=== PATIENT | male | born 1945 | race Caucasian/White ===

== ENCOUNTER 2017-07-09 16:57 | Inpatient (IN) | payer MEDICARE, OTHER ==
[2017-07-09 18:07] LABS: ADD MAN DIFF? NO
[2017-07-09 18:09] LABS: BASO # 0.1 x10^3/uL (0.0-0.2); BASO % 1 % (0-3); EOS # 0.2 x10^3/uL (0.0-0.7); EOS % 2 % (0-3); HEMATOCRIT 42.2 % (39.0-53.0); HEMOGLOBIN 14.7 g/dL (13.0-17.5); LYMPH # 2.6 x10^3/uL (1.0-4.8); LYMPH % 26 % (24-48); MEAN CORPUSCULAR HEMOGLOBIN 32 pg (25-35); MEAN CORPUSCULAR HGB CONC 35 g/dL (31-37); MEAN CORPUSCULAR VOLUME 91 fL (79-100); MONO # 1.3 x10^3/uL (0.0-1.1); MONO % 13 % (0-9); NEUT # 5.8 x10^3uL (1.8-7.7); NEUT % 59 % (31-73); PLATELET COUNT 253 x10^3/uL (140-400); RED BLOOD COUNT 4.64 x10^6/uL (4.30-5.70); RED CELL DISTRIBUTION WIDTH 13.1 % (11.5-14.5); WHITE BLOOD COUNT 9.9 x10^3/uL (4.0-11.0)
[2017-07-09 18:22] LABS: ANION GAP 7 (6-14); BLOOD UREA NITROGEN 25 mg/dL (8-26); BUN/CREATININE RATIO 23 (6-20); CALCIUM 8.4 mg/dL (8.5-10.1); CARBON DIOXIDE 27 mmol/L (21-32); CHLORIDE 103 mmol/L (98-107); CREATININE 1.1 mg/dL (0.7-1.3); GFR 66.4; GLUCOSE 113 mg/dL (70-99); POTASSIUM 4.3 mmol/L (3.5-5.1); SODIUM 137 mmol/L (136-145)
[2017-07-09 18:37] LABS: ALBUMIN 3.6 g/dL (3.4-5.0); ALK PHOS 82 U/L (46-116); ALT (SGPT) 45 U/L (16-63); AST (SGOT) 145 U/L (15-37); TOTAL BILIRUBIN 0.5 mg/dL (0.2-1.0); TOTAL PROTEIN 7.3 g/dL (6.4-8.2)
[2017-07-09 18:39] LABS: TROPONINI 17.775 ng/mL (0.000-0.055)
[2017-07-09] MEDS: ASPIRIN CHEWABLE 81 MG TABLET. PO (18:49)
[2017-07-09] MEDS ORDERED: ONDANSETRON PF 4 MG/2 ML VIAL. IV (19:30)
[2017-07-09] MEDS ORDERED: MORPHINE SULFATE 2 MG/ML DISP.SYRIN. IV (19:30)
[2017-07-09 19:37] LABS: INR 1.1 (0.8-1.1); PARTIAL THROMBOPLASTIN TIME 28 SEC (24-38); PROTHROMBIN TIME PATIENT 13.7 SEC (11.7-14.0)
[2017-07-09] MEDS: CLOPIDOGREL BISULFATE 75 MG TABLET PO (19:55)
[2017-07-09] MEDS: HEPARIN for IV BOLUS 10,000 UNIT/10 ML VIAL. IV (19:58)
[2017-07-09] MEDS: HEPARIN 25,000UTS/500ML PREMIX 500 ML IV (19:59)
[2017-07-10 02:06] LABS: HEMATOCRIT 42.1 % (39.0-53.0); HEMOGLOBIN 14.6 g/dL (13.0-17.5); MEAN CORPUSCULAR HEMOGLOBIN 32 pg (25-35); MEAN CORPUSCULAR HGB CONC 35 g/dL (31-37); MEAN CORPUSCULAR VOLUME 92 fL (79-100); PLATELET COUNT 241 x10^3/uL (140-400); RED BLOOD COUNT 4.59 x10^6/uL (4.30-5.70); RED CELL DISTRIBUTION WIDTH 13.1 % (11.5-14.5); WHITE BLOOD COUNT 8.8 x10^3/uL (4.0-11.0)
[2017-07-10 02:27] LABS: TROPONINI 15.354 ng/mL (0.000-0.055)
[2017-07-10] MEDS ORDERED: IOHEXOL 300 MG/ML 100ML VIAL. ×2 (07:35→09:08)
[2017-07-10] MEDS ORDERED: LIDOCAINE 2% 20 ML VIAL. ×2 (07:35→07:36)
[2017-07-10] MEDS: ANTI-COAG MONITOR BY PHARMACY. MC (07:41)
[2017-07-10 08:14] LABS: UNFRACTIONATED HEPARIN TESTING 0.23 IU/mL (0.30-0.70)
[2017-07-10] MEDS ORDERED: fentaNYL PF VIAL 100 MCG/2 ML VIAL (08:24)
[2017-07-10] MEDS ORDERED: MIDAZOLAM HCL/PF 2 MG/2 ML VIAL. (08:24)
[2017-07-10 08:31] LABS: TROPONINI 13.632 ng/mL (0.000-0.055)
[2017-07-10] MEDS: IOHEXOL 300 MG/ML 100ML VIAL. IART (08:45)
[2017-07-10] MEDS: MIDAZOLAM HCL/PF 2 MG/2 ML VIAL. IV (08:45)
[2017-07-10] MEDS: fentaNYL PF VIAL 100 MCG/2 ML VIAL IV (08:45)
[2017-07-10] MEDS: LIDOCAINE 2% 20 ML VIAL. IJ (08:45)
[2017-07-10] MEDS ORDERED: HEPARIN for IV BOLUS 10,000 UNIT/10 ML VIAL. (08:54)
[2017-07-10 10:49] LABS: ISTAT ACT 164 sec (92-181)
[2017-07-10 10:49] LABS: ISTAT ACT 107 sec (92-181)
[2017-07-10 10:49] LABS: ISTAT ACT 140 sec (92-181)
[2017-07-10] MEDS: CYANOCOBALAMIN (VITAMIN B-12) 1,000 MCG TABLET. PO (13:51)
[2017-07-10] MEDS: MULTIVITAMIN with MINERAL TABLET. PO (13:52)
[2017-07-10] MEDS: ASPIRIN ENTERIC COATED 81 MG TABLET.DR. PO (13:52)
[2017-07-10] MEDS: OMEGA-3 FATTY ACIDS/FISH OIL 1,000 MG CAPSULE. PO (13:52)
[2017-07-10] MEDS: LISINOPRIL 10 MG TABLET PO ×2 (13:52)
[2017-07-10] MEDS: TAMSULOSIN 0.4 MG CAP.ER.24H. PO (17:48)
[2017-07-10] MEDS: CARVEDILOL 12.5 MG TABLET. PO (17:48)
[2017-07-10 18:12] LABS: UNFRACTIONATED HEPARIN TESTING 0.16 IU/mL (0.30-0.70)
[2017-07-10] MEDS: HEPARIN for IV BOLUS 10,000 UNIT/10 ML VIAL. IV (19:24)
[2017-07-10] MEDS: ATORVASTATIN CALCIUM 40 MG TABLET. PO (20:12)
[2017-07-10] MEDS: HEPARIN 25,000UTS/500ML PREMIX 500 ML IV (23:37)
[2017-07-11 01:41] LABS: UNFRACTIONATED HEPARIN TESTING 0.59 IU/mL (0.30-0.70)
[2017-07-11 08:30] LABS: UNFRACTIONATED HEPARIN TESTING 0.43 IU/mL (0.30-0.70)
[2017-07-11] MEDS: CLOPIDOGREL BISULFATE 75 MG TABLET PO ×2 (08:40)
[2017-07-11] MEDS: TAMSULOSIN 0.4 MG CAP.ER.24H. PO (08:40)
[2017-07-11] MEDS: ASPIRIN ENTERIC COATED 81 MG TABLET.DR. PO (08:40)
[2017-07-11] MEDS: OMEGA-3 FATTY ACIDS/FISH OIL 1,000 MG CAPSULE. PO (08:40)
[2017-07-11] MEDS: CYANOCOBALAMIN (VITAMIN B-12) 1,000 MCG TABLET. PO (08:41)
[2017-07-11] MEDS: CARVEDILOL 12.5 MG TABLET. PO (08:41)
[2017-07-11] MEDS: MULTIVITAMIN with MINERAL TABLET. PO (08:41)
== END 2017-07-11 14:30 | disposition home or self-care (01) | DRG 281 ==
LOC: ER 16:57 → 2 NORTH 19:26
PROC: 4A023N7 Measurement of Cardiac Sampling and Pressure, Left Heart, Percutaneous Approach (ICD-10-PCS; principal; 2017-07-10)
PROC: B2151ZZ Fluoroscopy of Left Heart using Low Osmolar Contrast (ICD-10-PCS; 2017-07-10)
PROC: B2111ZZ Fluoroscopy of Multiple Coronary Arteries using Low Osmolar Contrast (ICD-10-PCS; 2017-07-10)
PROC: B3101ZZ Fluoroscopy of Thoracic Aorta using Low Osmolar Contrast (ICD-10-PCS; 2017-07-10)
DX: I21.4 Non-ST elevation (NSTEMI) myocardial infarction (principal); I50.22 Chronic systolic (congestive) heart failure; I11.0 Hypertensive heart disease with heart failure; Z95.1 Presence of aortocoronary bypass graft; E78.5 Hyperlipidemia, unspecified; I10 Essential (primary) hypertension; I25.119 Atherosclerotic heart disease of native coronary artery with unspecified angina pectoris; Z82.49 Family history of ischemic heart disease and other diseases of the circulatory system
CPT/HCPCS: 36415; 71045; 80053; 84484; 85025; 85027; 85347; 85520; 85610; 85730; 93005; 93459; 96374; 96375; 99152; 99153; 99285-25; C1769; C1771; C1892; G0269; J1644; J2250; J3010; Q9967

== ENCOUNTER → 2017-12-03 | Outpatient (CLI) | payer MEDICARE | END | disposition home or self-care (01) | LOC: ECHO 08:35 | DX: I25.5 Ischemic cardiomyopathy (principal); I11.0 Hypertensive heart disease with heart failure; I50.22 Chronic systolic (congestive) heart failure | CPT/HCPCS: 93306 ==

== ENCOUNTER → 2019-08-27 | Outpatient (CLI) | payer MEDICARE, OTHER ==
[2017-07-11 11:09] VITALS: BP 117/68
[~2019-08-27] MED LIST: ASPI81TA50 PO; ATOR40TA59 PO; CARV25TA2 PO; CLOP75TA PO; CYAN-25 PO; LISI10TA2 PO; MULT1TAB52 PO; OMEG1CAP6 PO; TAMS0.4C2 PO
--- NOTE | 2019-08-27 10:08 | CARD ---
MR#: [id number] Date of Study: 08/27/2019 Ordering Physician: HÉCTOR JAVED, Referring Physician: HÉCTOR JAVED, Tech: Peggy Pérez APPROVED REPORT EXAM: Two-dimensional and M-mode echocardiogram with Doppler and color Doppler. Other Information Quality : GoodHR: 64bpm Rhythm : NSR INDICATION CAD Surgery/Intervention CABG: RISK FACTORS Hypertension Hyperlipidemia 2D DIMENSIONS Left Atrium(2D)4.7 (1.6-4.0cm)IVSd1.2 (0.7-1.1cm) Aortic Root(2D)2.7 (2.0-3.7cm)LVDd4.8 (3.9-5.9cm) LVOT Diameter2.0 (1.8-2.4cm)PWd1.1 (0.7-1.1cm) LVDs3.8 (2.5-4.0cm)FS (%) 21.1 % SV45.9 mlLVEF(%)42.8 (>50%) Mitral Valve MV E Zjxuotrj43.9cm/sMV DECEL [id number] MV A Wwmjioou66.8cm/sE/A Ratio0.6 MV A Etnsnmnp27dj Pulmonary Vein S1 Zcyxvahb96.4cm/sD2 Ooqalylm32.8cm/s PVa [id number] LEFT VENTRICLE The left ventricle is normal size. There is borderline to mild left ventricular hypertrophy. Left sharan tricle systolic function is mildly decreased. EF 40-45% Mild global hypokinesis with wall motion sugg estive of conduction defect. Transmitral Doppler flow pattern is Grade I-abnormal relaxation pattern. RIGHT VENTRICLE The right ventricle is normal size. There is normal right ventricular wall thickness. The right ventr icular systolic function is normal. ATRIA The left atrium size is normal. The right atrium size is normal. The interatrial septum is intact wit h no evidence for an atrial septal defect or patent foramen ovale as noted on 2-D or Doppler imaging. AORTIC VALVE The aortic valve is mildly calcified. Doppler and Color Flow revealed no significant aortic regurgita tion. There is no evidence of aortic valve stenosis. MITRAL VALVE The mitral valve is normal in structure and function. There is no mitral valve stenosis. Doppler and Color Flow revealed trace mitral regurgitation. TRICUSPID VALVE The tricuspid valve is normal in structure and function. Doppler and Color Flow revealed no tricuspid valve regurgitation noted. There is no tricuspid valve prolapse or vegetation. PULMONIC VALVE Doppler and Color Flow revealed no pulmonic valvular regurgitation. There is no pulmonic valvular gabi nosis. GREAT VESSELS The aortic root is normal in size. The ascending aorta is normal in size. The IVC is normal in size a nd collapses >50% with inspiration. PERICARDIAL EFFUSION There is no evidence of significant pericardial effusion. Critical Notification Critical Value: No <Conclusion> Left ventricle systolic function is mildly decreased. EF 40-45% Mild global hypokinesis with wall motion suggestive of conduction defect. Signed by : Héctor Javed, Electronically Approved : 08/27/2019 10:08:42
== END | disposition home or self-care (01) ==
LOC: ECHO 08:54
PROVIDERS: ATTEND Internal Medicine Cardiovascular Disease
DX: I35.8 Other nonrheumatic aortic valve disorders (principal)
CPT/HCPCS: 93306

== ENCOUNTER → 2021-01-18 | Outpatient (CLI) | payer MEDICARE, OTHER ==
[2017-07-11 11:09] VITALS: BP 117/68
[~2021-01-18] MED LIST changes: +LISI10TA16 PO; -LISI10TA2 PO; +MULT-445 PO; -MULT1TAB52 PO
--- NOTE | 2021-01-18 10:08 | RAD ---
EXAM: Abdomen aortic sonogram. HISTORY: Tobacco use. Aortic aneurysm screening. TECHNIQUE: Sonographic imaging of the abdominal aorta was performed. COMPARISON: None. FINDINGS: There is calcified atherosclerotic plaque involving the aorta and iliac bifurcation. The pr oximal abdominal aorta measures 2.8 cm in caliber. The mid abdominal aorta measures 2.1 cm in caliber and the distal abdominal aorta measures 1.9 cm in caliber. The common iliac arteries are partially o bscured due to bowel gas. These are normal in caliber on limited images. IMPRESSION: 1. Aortobiiliac atherosclerosis. 2. No evidence of abdominal aortic aneurysm. Electronically signed by: Felicitas Renteria MD (01/18/2021 10:05 AM) [id number]
--- NOTE | 2021-01-18 18:51 | CARD ---
MR#: [id number] Date of Study: 01/18/2021 Ordering Physician: HÉCTOR JAVED, Referring Physician: HÉCTOR JAVED, Tech: Sidra Ilda, [facility] APPROVED REPORT EXAM: Two-dimensional and M-mode echocardiogram with Doppler and color Doppler. Other Information HR: 50bpm INDICATION Cardiac Disease: CAD Surgery/Intervention CABG: Date: 2000 Site: [facility] 2D DIMENSIONS RVDd3.9 (2.9-3.5cm)Left Atrium(2D)3.8 (1.6-4.0cm) IVSd1.1 (0.7-1.1cm)Aortic Root(2D)3.2 (2.0-3.7cm) LVDd5.0 (3.9-5.9cm)LVOT Diameter2.1 (1.8-2.4cm) PWd0.9 (0.7-1.1cm)LVDs3.2 (2.5-4.0cm) FS (%) 35.0 %SV75.3 ml Aortic Valve AoV Peak Jozef.139.3cm/sAoV VTI31.3cm AO Peak GR.7.8mmHgLVOT Peak Jozef.77.5cm/s LVOT VTI 20.02cmAO Mean GR.4mmHg DEEPA (VMAX)1.99ng0MCZ (VTI)2.18cm2 Mitral Valve MV E Nderwtis99.3cm/sMV DECEL [id number] MV A Wioivwhd16.4cm/sMV E Mean Gr.1mmHg MV THP318gsU/A Ratio0.7 MVA (PHT)1.83cm2 TDI E/Lateral E'5.5E/Medial E'6.2 Pulmonary Valve PV Peak Qiqzdirq94.0cm/sPV Peak Grad.4mmHg Tricuspid Valve TR P. Aopreayl092bm/sRAP VTNOXQCW7zzCa TR Peak Gr.26rpWfQAZJ11urFz Pulmonary Vein S1 Nkarpztx65.1cm/sD2 Cxmteoxg47.8cm/s PVa mxybmdog503mtyg LEFT VENTRICLE The left ventricle is normal size. There is normal left ventricular wall thickness. The left ventricu lar systolic function is normal and the ejection fraction is at the lower level of normal. The Ejecti on Fraction is estimated at 50%. Wall motion consistent with conduction abnormality. Transmitral Dopp ler flow pattern is Grade I-abnormal relaxation pattern. RIGHT VENTRICLE The right ventricle is borderline dilated. There is normal right ventricular wall thickness. The righ t ventricular systolic function is normal. ATRIA The left atrium size is normal. The right atrium is borderline dilated. The interatrial septum is int act with no evidence for an atrial septal defect or patent foramen ovale as noted on 2-D or Doppler i maging. AORTIC VALVE The aortic valve is thickened but opens well. Doppler and Color Flow revealed trace aortic regurgitat ion. There is no significant aortic valvular stenosis. Calculated aortic valve area is 1.79 cm2 with maximum pressure gradient of 11 mmHg and mean pressure gradient of 5 mmHg. MITRAL VALVE The mitral valve is thickened but opens well. There is no evidence of mitral valve prolapse. There is no mitral valve stenosis. Doppler and Color-flow revealed trace mitral regurgitation. TRICUSPID VALVE The tricuspid valve is normal in structure and function. Doppler and Color Flow revealed trace tricus pid regurgitation with an estimated PAP of 30 mmHg. There is no tricuspid valve stenosis. PULMONIC VALVE The pulmonic valve is not well visualized. Doppler and Color Flow revealed trace pulmonic valvular re gurgitation. GREAT VESSELS The aortic root is normal in size. The IVC is normal in size and collapses >50% with inspiration. PERICARDIAL EFFUSION There is no evidence of significant pericardial effusion. Critical Notification Critical Value: No <Conclusion> The left ventricle is normal size. The left ventricular systolic function is normal and the ejection fraction is at the lower level of n ormal. The Ejection Fraction is estimated at 50%. Wall motion consistent with conduction abnormality. Doppler and Color Flow revealed trace aortic regurgitation. There is no significant aortic valvular stenosis. Doppler and Color-flow revealed trace mitral regurgitation. Doppler and Color Flow revealed trace tricuspid regurgitation with an estimated PAP of 30 mmHg. Signed by : Chai Marie MD Electronically Approved : 01/18/2021 18:50:29
== END ==
LOC: US 09:13
PROVIDERS: ATTEND Internal Medicine Cardiovascular Disease
DX: I70.0 Atherosclerosis of aorta (principal); I25.10 Atherosclerotic heart disease of native coronary artery without angina pectoris; I10 Essential (primary) hypertension; Z87.891 Personal history of nicotine dependence
CPT/HCPCS: 76770; 93306